=== PATIENT | female | born 1980 | race Hispanic/Latino ===

== ENCOUNTER 2022-03-10 11:15 | Emergency (ER) | payer OTHER ==
[~2022-03-10] VITALS: Ht 160 cm; Wt 77.1 kg
[2022-03-10 11:16] VITALS: BP 116/74
[2022-03-10] MEDS ORDERED: AZITHROMYCIN 250 MG TABLET PO ONE (12:30)
[2022-03-10] MEDS ORDERED: DEXAMETHASONE 4 MG TAB PO SCH (12:30)
[2022-03-10] MEDS ORDERED: ALBUTEROL INHALER 90MCG/INH IH PRN (12:30)
[2022-03-10] MEDS ORDERED: AMOX/CLAV 875/125MG TAB PO ONE (12:30)
[2022-03-10] MEDS ORDERED: ALBU8.5H8 IH (13:19)
[2022-03-10] MEDS ORDERED: BENZ-39 PO (13:19)
[2022-03-10] MEDS ORDERED: AMOX1TAB16 PO (13:19)
[2022-03-10] MEDS ORDERED: PRED20TA3 PO (13:19)
== END 2022-03-10 13:30 | disposition home or self-care (01) ==
LOC: EDH 11:15
DX: J40 Bronchitis, not specified as acute or chronic (principal); Z20.822 Contact with and (suspected) exposure to COVID-19; Z98.890 Other specified postprocedural states
CPT/HCPCS: 71045; 87635; 87804 ×2; 87880; 99284; C9803; J8540

== ENCOUNTER 2023-01-30 17:20 | Emergency (ER) | payer OTHER ==
[~2023-01-30] VITALS: Ht 157.5 cm; Wt 72.6 kg
[~2023-01-30 17:20] MED LIST: ALBU8.5H8 IH; AMOX1TAB16 PO; BENZ-39 PO; PRED20TA3 PO
[2023-01-30 18:19] VITALS: BP 123/58
[2023-01-30 19:41] LABS: APPEARANCE,URINE CLOUDY (CLEAR); BILIRUBIN,URINE NEGATIVE (NEGATIVE); COLOR,URINE LIGHT-YELLOW (YELLOW); GLUCOSE, URINE (UA) NEGATIVE (NEGATIVE); KETONES,URINE 20 mg/dL (NEGATIVE); LEUKOCYTE ESTERASE ,URINE 250 Leu/uL (NEGATIVE); NITRATE,URINE NEGATIVE (NEGATIVE); OCCULT BLOOD,URINE SMALL (NEGATIVE); PH,URINE 5.5 (5.0-8.0); PROTEIN,URINE NEGATIVE (NEGATIVE); UROBILINOGEN,URINE 0.2 mg/dL (0.2-1.0)
[2023-01-30 19:44] LABS: HCG,QUALITATIVE URINE NEGATIVE (NEGATIVE)
[2023-01-30 19:54] LABS: BACTERIA,URINE FEW /HPF (None Seen); MUCUS,URINE RARE LPF (None Seen); SQUAMOUS EPITHELIAL CELL,UR MOD /HPF (0-2)
[2023-01-30] MEDS ORDERED: CEPH500B PO (20:03)
[2023-01-30] MEDS ORDERED: MOLN200C PO (20:03)
== END 2023-01-30 20:21 | disposition home or self-care (01) ==
LOC: EDH 17:20
DX: M25.532 Pain in left wrist (principal); U07.1 COVID-19; B34.9 Viral infection, unspecified; N39.0 Urinary tract infection, site not specified; Z79.899 Other long term (current) drug therapy; Z98.890 Other specified postprocedural states
CPT/HCPCS: 99283; 87635; 87088; 87880; 87804 ×2; 81001; 81025; C9803

== ENCOUNTER 2024-03-10 07:55 | Emergency (ER) | payer OTHER ==
[~2024-03-10] VITALS: Ht 160 cm; Wt 79.4 kg
[~2024-03-10 07:55] MED LIST changes: +CEPH500B PO; +MOLN200C PO
[2024-03-10] MEDS: CEFTRIAXONE 1G VIAL IM ONE (09:04)
[2024-03-10] MEDS ORDERED: DIPH50 PO (09:58)
[2024-03-10] MEDS ORDERED: CEPH500B PO (09:58)
[2024-03-10] MEDS ORDERED: SULF1TAB42 PO (09:58)
[2024-03-10] MEDS ORDERED: IBUP-2070 PO (09:58)
[2024-03-10 10:09] VITALS: BP 124/62; PULSE 64; RESP 18; O2SAT 99
== END 2024-03-10 10:10 | disposition home or self-care (01) ==
LOC: EDH 07:55
DX: S80.862A Insect bite (nonvenomous), left lower leg, initial encounter (principal); Z79.899 Other long term (current) drug therapy; Z98.890 Other specified postprocedural states; X58.XXXA Exposure to other specified factors, initial encounter; Y93.89 Activity, other specified; Y92.89 Other specified places as the place of occurrence of the external cause; Y99.8 Other external cause status
CPT/HCPCS: 99283; 96372; J0696

== ENCOUNTER 2024-10-11 17:12 | Emergency (ER) | payer OTHER ==
[~2024-10-11] VITALS: Ht 157.5 cm; Wt 81.6 kg
[~2024-10-11 17:12] MED LIST changes: +ACET-66 PO; +DIPH50 PO; +IBUP-2070 PO; +SULF1TAB42 PO
[2024-10-11 17:20] VITALS: TEMP 98.1
--- NOTE | 2024-10-11 17:33 | ERN ---
ED Note History of Present Illness Stated Complaint: FALL AT WORK Chief Complaint: Mechanical Fall Time Seen by MD: 17:13 Time Seen by Midlevel: 17:13 Dictation: The patient is a 44-year-old female with a history of tubal ligation who presents to the emergency department with complaints of right leg pain after falling off a chair onset 4:30 p.m. patient denies any head trauma, use of blood thinners denies any chest pain, back pain, neck pain, upper extremity pain, abdominal pain denies any other injuries. Allergies: Coded Allergies: menthol (Unverified Allergy, Unknown, 05/06/24) methyl salicylate (Unverified Allergy, Unknown, 05/06/24) Home Meds Active Scripts Acetaminophen (Tylenol) 500 Mg Tab, 500 MG PO Q6 for 5 Days, #30 TAB Prov:LIGIA ZAFAR MD 05/06/24 Sulfamethoxazole/Trimethoprim (Bactrim Ds Tablet) 800 Mg-160 Mg Tablet, 1 TAB PO BID for 7 Days, #14 TAB 0 Refills Prov:JEAN DUTTON MD 03/10/24 Ibuprofen (Ibuprofen) 600 Mg Tablet, 600 MG PO Q6H PRN for PAIN, #30 TAB Prov:JEAN DUTTON MD 03/10/24 Cephalexin Monohydrate (Keflex) 500 Mg Cap, 500 MG PO QID for 7 Days, #28 CAP Prov:JEAN DUTTON MD 03/10/24 Diphenhydramine HCl (Benadryl) 50 Mg Cap, 50 MG PO TID PRN for ALLERGIC REACTION for 10 Days, #30 CAP 0 Refills Prov:JEAN DUTTON MD 03/10/24 Cephalexin Monohydrate (Keflex) 500 Mg Cap, 500 MG PO QID for 7 Days, #28 CAP Prov:ROBBY MULLIGANP 01/30/23 Molnupiravir (Molnupiravir (Eua)) 200 Mg Capsule, 800 MG PO BID for 5 Days, #40 CAP Prov:ROBBY MULLIGANP 01/30/23 Prednisone (Prednisone) 20 Mg Tablet, 40 MG PO DAILY for 5 Days, #10 TAB Prov:JUSTYNA COREY 03/10/22 Albuterol Sulfate (Proair Hfa) 8.5 Gm Hfa.aer.ad, 2 PUFF IH QIDP, #1 INHALER Prov:JUSTYNA COREY AJ 03/10/22 Benzonatate (Tessalon Perles) 100 Mg Cap, 100 MG PO QIDP, #30 CAP Prov:JUSTYNA COREY AJ 03/10/22 Amoxicillin/Potassium Clav (Amox Tr-K Clv 875-125 mg Tab) 1 Each Tablet, 1 EACH PO BID for 10 Days, #20 TAB Prov:JUSTYNA COREY AJ 03/10/22 Past Medical History Past Medical History: Bronchitis Surgical History: BTL Family History: Negative Social History: Negative RN Note Reviewed/Agreed w/PFSH: Yes Review of System Dictation Constitutional: Negative for fever,chills, and weight loss Eyes: Negative for injury, pain,redness, and discharge ENT: Negative for injury,pain or swelling Cardiovascular: Negative for chest pain, palpitations, and edema Respiratory: Negative for shortness of breath, cough, and wheezing, Abdomen/GI: Negative for abdominal pain, nausea, vomiting, diarrhea, and constipation Back: Negative for injury and pain : Negative for injury, bleeding and discharge MS/Extremity: Negative for injury and deformity positive for right leg pain Skin: Negative for rash, and discoloration Neuro: Negative for headache, weakness, numbness, tingling, and seizure Psych: Negative for suicide ideation, homicidal ideation, and hallucinations Initial Vital Sign VS Vital Signs Date Time Temp Pulse Resp B/P (MAP) Pulse Ox O2 Delivery O2 Flow Rate FiO2 10/11/24 17:20 98.1 83 16 144/85 95 Room Air* 0 21 Physical Exam Dictation Vital Signs reviewed General Appearance: Alert, oriented x 3, no acute distress, well developed, nourished. Head and Face: non-traumatic. Eyes: PERRL, pink conjunctivas, eyelid no trauma, anterior chamber with arcus senilis. Ears: Pinnas intact and no signs of trauma or erythema ear canals clear and no discharge TM no erythema Nose: No discharge, no bleeding. Oropharynx: Mouth normal, tongue pink. pharynx clear,no erythema, tonsils no exudates, no abscesses noted, mucous membrane moist Neck: Supple, non-tender, no thyromegaly, no masses, no JVD, no bruits Breast:Deferred Chest:No tenderness, no crepitus, no paradoxical movement, no retractions Lungs:Clear, well-ventilated, symmetric, no rales, no wheezing, no rhonchi, no stridor, good breath sounds bilaterally Heart: Regular rate, regular rhythm, no murmur, no gallops Vascular: no peripheral edema, Abdomen: Soft, positive bowel sounds, nondistended, no guarding, nontender, no rebound, no masses no hepatomegaly, no splenomegaly, no Carrion's sign, no hernias. Rectal: Deferred Genital: Deferred Neurological: Normal speech, motor function intact, sensory function intact Musculoskeletal: Neck nontender, full range of motion, back nontender, full range of motion, Extremities: nontender, full range of motion , full range of motion to right leg, no deformities, ambulatory, cap refill less than 2 seconds Skin: Color pink, dry, no turgor, no rash, no lacerations, no abrasions, no contusions. Lymphatic: Deferred Results (Laboratory/Radiology) Laboratory/Radiology REASON: fall,pain ORDERING PHYSICIAN: JONELLE MEDINA SALES MARKETING DIRECTOR PROCEDURE: [id number] - ANKLE COMP 3VWS RT ANKLE COMP 3VWS RT HISTORY: Status post fall COMPARISON: None TECHNIQUE: 3 images of right ankle were obtained. FINDINGS: There is no acute displaced fracture or dislocation. Soft tissue swelling is seen. Tiny calcaneal spur is seen. IMPRESSION: 1. Findings as described above. REASON: fall,pain ORDERING PHYSICIAN: JONELLE MEDINA SALES MARKETING DIRECTOR PROCEDURE: FEM RT 2 - FEMUR 2VW RIGHT FEMUR 2VW RIGHT HISTORY: Status post fall COMPARISON: None TECHNIQUE: 4 images of right femur were obtained. FINDINGS: There is no acute displaced fracture or dislocation. Right hip joint space narrowing is seen. Degenerative changes are seen. IMPRESSION: 1. Findings as described above. REASON: fall,pain ORDERING PHYSICIAN: JONELLE MEDINA SALES MARKETING DIRECTOR PROCEDURE: TIBFIB RT - TIBIA/FIBULA 2VWS RT TIBIA/FIBULA 2VWS RT HISTORY: Status post fall COMPARISON: None TECHNIQUE: 2 images of right tibia and fibula were obtained. FINDINGS: There is no acute displaced fracture or dislocation. Degenerative changes are seen. IMPRESSION: 1. Findings as described above. Labs Reviewed?: Yes ED Course ED Course Orders Procedure Category Date Status Time Femur 2vw Right RAD 10/11/24 Resulted 17:30 Tibia/Fibula 2vws Rt RAD 10/11/24 Resulted 17:30 Ankle Comp 3vws Rt RAD 10/11/24 Resulted 17:30 Acetaminophen 500mg PHA 10/11/24 Complete Tab (Tylenol 500mg T 17:30 Current Medications Medications (Trade) Dose Ordered Sig/Debbie Route PRN Reason Start Time Stop Time Status Last Admin Dose Admin Acetaminophen (TYLenol 500MG TAB) 1,000 mg ONCE ONCE PO 10/11/24 17:30 10/11/24 17:32 DC 10/11/24 19:38 Vital Signs Date Time Temp Pulse Resp B/P (MAP) Pulse Ox O2 Delivery O2 Flow Rate FiO2 10/11/24 17:20 98.1 83 16 144/85 98 Room Air 0 10/11/24 17:20 98.1 83 16 144/85 95 Room Air* 0 21 Medical Decision Making MDM The patient is a 44-year-old female with a history of tubal ligation who presents to the emergency department with complaints of right leg pain after f alling off a chair onset 4:30 p.m. patient denies any head trauma, use of blood thinners denies any chest pain, back pain, neck pain, upper extremity pain, abdominal pain denies any other injuries. xray showed no acute fractures or dislocations. Patient no acute distress will be discharged and follow up with PCP. Differential diagnosis: Femur fracture, tib-fib fracture, ankle fracture, sprain ankle, leg contusion Need for hospitalization: Patient does not meet criteria for hospitalization. There are no social concerns with this patient. DX & DISP Disposition: Discharge Departure Impression: Primary Impression: Fall Additional Impression: Contusion of right leg Condition: Stable Additional Instructions: Please follow up with PCP in 1-2 days. If symptoms worsen please return to ER. FOLLOW-UP WITH PRIMARY CARE PROVIDER IN 1 TO 2 DAYS. TAKE MEDICATIONS DIRECTED HERE IN THE EMERGENCY ROOM. OKAY TO CONTINUE HOME MEDICATIONS UNLESS OTHERWISE DISCUSSED DURING YOUR VISIT IN THE EMERGENCY ROOM TODAY. RETURN TO YOUR NEAREST EMERGENCY ROOM IF SYMPTOMS WORSEN OR IF THERE IS NO IMPROVEMENT. CALL 911 IF YOU NEED IMMEDIATE ASSISTANCE. TAKE TYLENOL OR MOTRIN [id number] NEEDED AND IF NO CONTRAINDICATIONS ARE PRESENT. INCREASE ORAL HYDRATION. A WOUND CULTURE OR URINE CULTURE WAS ORDERED HERE IN THE EMERGENCY ROOM DEPARTMENT PLEASE FOLLOW-UP WITH PRIMARY CARE PROVIDER AND ADVISE THEM TO GET REPEAT PORTS FROM OUR FACILITY. IF YOU HAD ANY AYDEN WRAP/SPLINTS THAT WERE APPLIED HERE, PLEASE DO NOT REMOVE THEM UNTIL YOU SEE YOUR PRIMARY CARE OR SPECIALTY. Referrals: NONE (PCP) Time of Disposition: 19:44 I have reviewed the case, and I agree with, Diagnosis and Plan JONELLE MEDINA Oct 11, 2024 17:33
--- NOTE | 2024-10-11 19:32 | HMCIMG ---
ANKLE COMP 3VWS RT HISTORY: Status post fall COMPARISON: None TECHNIQUE: 3 images of right ankle were obtained. FINDINGS: There is no acute displaced fracture or dislocation. Soft tissue swelling is seen. Tiny calcaneal spur is seen. IMPRESSION: 1. Findings as described above.
--- NOTE | 2024-10-11 19:36 | HMCIMG ---
TIBIA/FIBULA 2VWS RT HISTORY: Status post fall COMPARISON: None TECHNIQUE: 2 images of right tibia and fibula were obtained. FINDINGS: There is no acute displaced fracture or dislocation. Degenerative changes are seen. IMPRESSION: 1. Findings as described above.
--- NOTE | 2024-10-11 19:37 | HMCIMG ---
FEMUR 2VW RIGHT HISTORY: Status post fall COMPARISON: None TECHNIQUE: 4 images of right femur were obtained. FINDINGS: There is no acute displaced fracture or dislocation. Right hip joint space narrowing is seen. Degenerative changes are seen. IMPRESSION: 1. Findings as described above.
[2024-10-11] MEDS: acetaMINOPHEN 500 MG TABLET PO ONE (19:38)
[2024-10-11 20:04] VITALS: BP 138/81; PULSE 78; RESP 18; O2SAT 96
== END 2024-10-11 20:18 | disposition home or self-care (01) ==
LOC: EDH 17:12
DX: S80.11XA Contusion of right lower leg, initial encounter (principal); Z79.52 Long term (current) use of systemic steroids; Z98.51 Tubal ligation status; W07.XXXA Fall from chair, initial encounter; Y93.89 Activity, other specified; Y92.89 Other specified places as the place of occurrence of the external cause; Y99.0 Civilian activity done for income or pay
CPT/HCPCS: 73552; 73590; 73610; 99284